=== PATIENT | female | born 1995 | race Caucasian/White ===

== ENCOUNTER 2021-03-13 23:40 | Emergency (ER) | payer BC ==
[~2021-03-13] VITALS: Ht 167.6 cm; Wt 63.6 kg
[2021-03-13] MEDS ORDERED: MEDROL 4MG DOSPA4 MG PO (23:57)
[2021-03-14 00:17] VITALS: BP 145/78; PULSE 85
== END 2021-03-14 00:17 | disposition home or self-care (01) ==
LOC: COL.ER 23:40
DX: L50.9 Urticaria, unspecified (principal); R00.0 Tachycardia, unspecified; Z88.1 Allergy status to other antibiotic agents; Z88.2 Allergy status to sulfonamides
CPT/HCPCS: J7512